=== PATIENT | female | born 1995 | race Two or more races ===

== ENCOUNTER 2023-07-11 20:55 | Emergency (ER) | payer OTHER ==
[~2023-07-11] VITALS: Ht 152.4 cm; Wt 63.5 kg
[2023-07-11] MEDS ORDERED: 0.9 % SODIUM CHLORIDE 1,000 ML IV STA (22:09)
[2023-07-11 23:31] LABS: PH,URINE 5.5 (5.0-8.0); URINE APPEARANCE Clear; URINE BILIRRUBIN Negative (NEGATIVE); URINE BLOOD Large; URINE COLOR Yellow; URINE GLUCOSE Negative (NEGATIVE); URINE LEUKOCYTE Trace; URINE NITRATE Negative; URINE PROTEIN Negative (NEGATIVE); URINE UROBILINOGEN 0.2 E.U./dl
[2023-07-11 23:32] LABS: HEMOGLOBIN 12.5 g/dL (12.0-15.00); MEAN CELL VOLUME 85.3 fL (80.00-100.00); MEAN CORPUSCULAR HEMOGLOBIN 28.7 pg (27.00-32.0); MEAN CORPUSCULAR HGB CONC 33.7 g/dl (32.0-36.0); PLATELET COUNT 252 K/uL (150-450); RED BLOOD COUNT 4.34 M/uL (4.00-6.00); RED CELL DISTRIBUTION WIDTH 13.1 % (11.5-14.5)
[2023-07-11 23:34] LABS: URINE BACTERIA 483.8 uL (0.0-1933); URINE EPITHELIAL CELLS 15.3 uL (0.0-38.8); URINE RBC 2517.7 uL (0.0-20.8); URINE WBC 25.3 uL (0.0-23.2)
== END 2023-07-12 03:59 ==
LOC: ER 20:56
PROVIDERS: Emergency Medicine
DX: O20.9 Hemorrhage in early pregnancy, unspecified (principal); Z3A.01 Less than 8 weeks gestation of pregnancy

== ENCOUNTER 2024-02-03 18:45 | Inpatient (IN) | payer OTHER ==
[~2024-02-03] VITALS: Ht 162.6 cm; Wt 68.0 kg
[2024-02-03 17:55] VITALS: BP 114/76
[2024-02-03] MEDS ORDERED: RINGERS SOLUTION,LACTATED 1,000 ML IV SCH (19:00)
[2024-02-03] MEDS ORDERED: AMPICILLIN SODIUM 2,000 MG VIAL IV ONE (19:00)
[2024-02-03 19:53] LABS: URINE APPEARANCE Clear; URINE BILIRRUBIN Negative (NEGATIVE); URINE BLOOD Negative; URINE COLOR Yellow; URINE GLUCOSE Negative (NEGATIVE); URINE KETONE Negative (NEGATIVE); URINE LEUKOCYTE Negative; URINE NITRATE Negative; URINE PROTEIN Negative (NEGATIVE); URINE UROBILINOGEN 0.2 E.U./dl
[2024-02-03 19:56] LABS: HEMATOCRIT 34.9 % (36.0-45.00); HEMOGLOBIN 11.6 g/dL (12.0-15.00); MEAN CELL VOLUME 85.5 fL (80.00-100.00); MEAN CORPUSCULAR HEMOGLOBIN 28.5 pg (27.00-32.0); MEAN CORPUSCULAR HGB CONC 33.3 g/dl (32.0-36.0); PLATELET COUNT 236 K/uL (150-450); RED BLOOD COUNT 4.08 M/uL (4.00-6.00); RED CELL DISTRIBUTION WIDTH 13.3 % (11.5-14.5); URINE BACTERIA 236.7 uL (0.0-1933); URINE EPITHELIAL CELLS 10.9 uL (0.0-38.8); URINE WBC 3.3 uL (0.0-23.2)
[2024-02-03 19:59] LABS: URINE RBC 1.6 uL (0.0-20.8)
[2024-02-03] MEDS ORDERED: BETAMETHASONE ACETATE,SOD PHOS 30 MG/5 ML ML IM SCH (20:00)
[2024-02-03] MEDS ORDERED: AMPICILLIN SODIUM 1,000 MG VIAL IV SCH (20:00)
[2024-02-03 20:04] LABS: INR 0.94; PARTIAL THROMBOPLASTIN TIME 28.5 SECONDS (22.0-34.0); PROTHROMBIN TIME 10.3 SECONDS (9.0-11.5)
[2024-02-03 20:10] LABS: BILIRUBIN TOTAL 0.14 mg/dL (0.3-1.2); CALCIUM 9.6 mg/dL (8.5-10.1); CREATININE SERUM 0.47 mg/dL (0.55-1.02); GFR 157.78; POTASSIUM 4.37 mEq/L (3.5-5.1)
[2024-02-03] MEDS ORDERED: PRENATAL TABLE1 EAC4 PO (20:13)
[2024-02-03] MEDS ORDERED: ADULT ASPIRIN81 MG PO (20:13)
[2024-02-03 20:43] VITALS: BP 103/65
[2024-02-03 23:30] VITALS: BP 103/68
[2024-02-04 03:39] VITALS: BP 108/67
[2024-02-04 07:28] VITALS: BP 100/63; O2SAT 100
[2024-02-04 11:20] VITALS: BP 100/58
[2024-02-04 12:41] VITALS: BP 116/74
[2024-02-04 16:57] VITALS: BP 110/68
[2024-02-05] VITALS (7 sets, daily range): BP systolic 103–115; BP diastolic 60–77
[2024-02-05] MEDS ORDERED: NIFEDIPINE 30 MG TAB.SA.OSM PO NR (14:05)
[2024-02-05] MEDS ORDERED: NIFEDIPINE 30 MG TAB.SA.OSM PO SCH (21:00)
[2024-02-06 03:28] VITALS: BP 103/64
[2024-02-06 07:30] VITALS: BP 107/70
[2024-02-06 12:30] VITALS: BP 105/70
[2024-02-06 14:08] VITALS: BP 116/76
[2024-02-06 15:57] VITALS: BP 116/74
[2024-02-07 01:00] VITALS: BP 113/75
[2024-02-07 10:09] VITALS: BP 104/68
[2024-02-08] VITALS: BP 102/69
[2024-02-08 07:47] VITALS: BP 103/66
[2024-02-08] MEDS ORDERED: Procardia Xl 30MG TA PO (13:49)
== END 2024-02-08 14:38 | disposition home or self-care (01) | DRG 833 ==
LOC: OB/GYN 18:45 → LDR 18:45 → OB/GYN 02-04 10:14
PROVIDERS: ADMIT Obstetrics & Gynecology; ATTEND Obstetrics & Gynecology
PROC: 4A1HXCZ Monitoring of Products of Conception, Cardiac Rate, External Approach (ICD-10-PCS; principal; 2024-02-03)
PROC: BY4FZZZ Ultrasonography of Third Trimester, Single Fetus (ICD-10-PCS; 2024-02-07)
PROC: BU4CZZZ Ultrasonography of Uterus and Ovaries (ICD-10-PCS; 2024-02-07)
DX: O60.03 Preterm labor without delivery, third trimester (principal); O35.3XX0 Maternal care for (suspected) damage to fetus from viral disease in mother, not applicable or unspecified; O26.843 Uterine size-date discrepancy, third trimester; O36.8130 Decreased fetal movements, third trimester, not applicable or unspecified; Z3A.30 30 weeks gestation of pregnancy; Z20.822 Contact with and (suspected) exposure to COVID-19; O26.893 Other specified pregnancy related conditions, third trimester; R10.2 Pelvic and perineal pain